=== PATIENT | male | born 1980 | race Caucasian/White ===

== ENCOUNTER 2019-03-29 10:27 | Emergency (ER) | payer OTHER, SELFPAY ==
[2019-03-29 10:39] VITALS: BP 144/81; PULSE 112; RESP 18; TEMP 38.4; O2SAT 95
--- NOTE | 2019-03-29 11:07 | ED.GENADULT ---
HPI - General Adult General Chief complaint: Upper Respiratory Infection Stated complaint: Fever,Cough Time Seen by Provider: 03/29/19 11:08 Source: patient and RN notes reviewed Limitations: no limitations History of Present Illness HPI narrative: This is a 38 years old male presented office for evaluation of not feeling well since last night. He is here visiting his grandma from [place]. As he was driving here he suddenly felt extremely tired, achy, headache, cough, and fever went up to 102 last night.He took Advil last night but nothing this morning.He does not smoke. He did not receive influenza vaccine. Denies sick contact. Related Data Home Medications Medication Instructions Recorded Confirmed buspirone 10 mg PO DAILY 03/29/19 03/29/19 clonazepam 1 mg PO BID 03/29/19 03/29/19 insulin aspart U-100 [Novolog 1 unit SUBCUT USEASDIRECTD 03/29/19 03/29/19 Flexpen U-100 Insulin] insulin degludec [Tresiba 30 unit SUBCUT USEASDIRECTD 03/29/19 03/29/19 FlexTouch U-100] levothyroxine [Synthroid] 75 mcg PO DAILY 03/29/19 03/29/19 pravastatin 20 mg PO DAILY 03/29/19 03/29/19 vilazodone [Viibryd] 40 mg PO DAILY 03/29/19 03/29/19 Allergies Allergy/AdvReac Type Severity Reaction Status Date / Time azithromycin AdvReac Nausea Verified 03/29/19 10:57 Review of Systems Review of Systems: Narrative: CONSTITUTIONAL: Reports fever, chills, achy ENT: Reports a slight sore throat and headache CARDIOVASCULAR: Denies chest pain, palpitations, edema. RESPIRATORY: Denies dyspnea, wheezing. Reports cough GASTROINTESTINAL: Denies abdominal pain, nausea, vomiting, diarrhea. GENITOURINARY: Denies urinary symptoms or discharge SKIN: Denies rash MUSCULOSKELETAL: Denies acute back pain. Reports generalize bodyache NEUROLOGIC: Denies numbness, or focal weakness. [facility] Past Medical History Medical History (Updated 03/29/19 @ 11:34 by OCTAVIANO Aguero) Anxiety and depression HLD (hyperlipidemia) Social History Social History (Updated 03/29/19 @ 11:17 by Chanrachna Ladin, PROGRAM STRATEGIST) Smoking status: Never smoker Gender identity (if verbalized by the patient): Male Comments At time of signature, I agree with nursing past medical, surgical, social and family history. There is no relevant family history pertinent to the presenting complaint. Exam Narrative: Exam Narrative: GENERAL: This is a well-nourished, well-developed patient,ill apparent but not in acute distress. EARS: External ears normal, auditory canals clear and without drainage, TMs normal without perforation. Hearing grossly intact. NOSE: External nose normal with no obvious nasal discharge, nares without redness, no rhinorrhea. THROAT: Mucous membranes moist, posterior pharynx slight erythema. NECK: Neck supple, non-tender without lymphadenopathy, masses or thyromegaly. CARDIOVASCULAR: Regular rate and rhythm without murmurs, gallops, or rubs. RESPIRATORY: Clear to auscultation. Breath sounds equal bilaterally. No wheezes, rales, or rhonchi. GASTROINTESTINAL: Abdomen soft, non-tender, nondistended. Bowel sounds are active. No hepato-splenomegaly, or palpable masses. No guarding. SKIN: warm, intact with no suspicious lesions or rash, good texture and turgor. NEURO: awake, alert, and oriented to person, place and time. There were no obvious focal neurologic abnormalities. Steady gait [place] Coma Scale Eye Opening: Spontaneous 4 [place] Coma Scale Motor: Obeys Commands 6 [place] Coma Scale Verbal: Oriented 5 Course Vital Signs Vital signs: Vital Signs Temperature 101.1 F H 03/29/19 10:39 Pulse Rate 112 H 03/29/19 10:39 Respiratory Rate 18 03/29/19 10:39 Blood Pressure 144/81 H 03/29/19 10:39 Pulse Oximetry 03/29/19 10:39 Temperature 101.1 F H 03/29/19 11:22 Pulse Rate 112 H 03/29/19 10:39 Respiratory Rate 18 03/29/19 10:39 Blood Pressure 144/81 H 03/29/19 10:39 Pulse Oximetry 03/29/19 10:39 Medical Decision Making M
[2019-03-29 11:22] VITALS: TEMP 38.4
[2019-03-29] MEDS: ACETAMINOPHEN 325 MG TABLET 650 MG PO (11:22)
[2019-03-29 11:48] VITALS: TEMP 38.4
== END 2019-03-29 11:48 | disposition home or self-care (01) ==
PROVIDERS: Emergency Provider Nurse Practitioner
DX: J06.9 Acute upper respiratory infection, unspecified (principal); E78.5 Hyperlipidemia, unspecified; F41.9 Anxiety disorder, unspecified; F32.9 Major depressive disorder, single episode, unspecified; E11.9 Type 2 diabetes mellitus without complications
CPT/HCPCS: 87081; 87804; 87880; 99203; A9270; G0463